=== PATIENT | male | born 1955 | race Asian ===

== ENCOUNTER 2016-09-18 08:17 | Day surgery (SDC) | payer MEDICAID, OTHER ==
[2016-09-17 14:19] VITALS: BMI 27.3
[~2016-09-18] VITALS: Ht 160 cm; Wt 71.9 kg
[2016-09-18] VITALS (9 sets, daily range): BP systolic 116–140; BP diastolic 59–83; PULSE 65–80; RESP 15–18; Ht 160 cm; Wt 71.9 kg
--- NOTE | 2016-09-18 07:47 | PREOPHP ---
DATE OF ADMISSION: 09/18/2016 HISTORY OF PRESENT ILLNESS: This is a 61-year-old male patient with a long history of nasal obstruc tion to breathing and ear problems. He is noted to have chronic ear infections and is noted to have a right tympanic membrane perforation. He is now admitted to the hospital for right ear corrective surgery. PAST MEDICAL HISTORY: ALLERGIES: NONE. MEDICAL CONDITIONS: Diabetes, high blood pressure ulcers, cholesterol. MEDICATIONS: 1. Metformin. 2. Pravastatin. 3. Omeprazole. PRIOR SURGERY: None. CLOTTING DISORDERS: None. HABITS: Alcohol, tobacco, recreational drugs: None. REVIEW OF SYSTEMS: Noncontributory. FAMILY HISTORY: Noncontributory. PHYSICAL EXAMINATION: GENERAL: Well-developed, well-nourished male patient in no acute distress. HEAD: Normocephalic. No masses or deformities. Ears and tympanic membranes, there is a central dr y right tympanic membrane perforation. NOSE: Clear. OROPHARYNX: Clear. NECK: No masses or adenopathy. CHEST: Clear to P and A. HEART: Regular sinus rhythm without murmur. ABDOMEN: Soft, bowel sounds normal. No masses or megaly. EXTREMITIES: Full range of motion without deformity. NEUROLOGIC: Physiologic. RECTAL: Not done. IMPRESSION: Right otitis perforata. RECOMMENDATIONS: Admit for surgery. Dictated By: LISA BETANCOURT/[place] Conf#: [id number] DID#: [id number]
[~2016-09-18 08:17] MED LIST: ASCO500C7 PO; CHOL100062 PO; CYAN100080 PO; EPHEDrine SULFATE 50 MG/5 ML SYG ONE; GLUC1CAP40 PO; MTF1000T PO; NAPR-679 PO; OMEP20CA16 PO
[2016-09-18] MEDS ORDERED: PRAV40TA76 PO (08:45)
[2016-09-18] MEDS ORDERED: LOSA50TA6 PO (08:48)
[2016-09-18] MEDS ORDERED: MULTI PO (08:48)
[2016-09-18] MEDS ORDERED: PROPOFOL 20 ML ONE (12:47)
[2016-09-18] MEDS ORDERED: FENTAnyl 50 MCG/ML VIAL ONE (12:48)
[2016-09-18] MEDS ORDERED: MIDAZOLAM 1 MG/ML 2 ML INJ ONE (12:48)
[2016-09-18] MEDS ORDERED: LIDOCAINE 1%/EPI (MDV) 20 ML INJ ONE (12:57)
[2016-09-18] MEDS ORDERED: GELATIN SIZE 100 SPONGE ONE (12:57)
[2016-09-18] MEDS ORDERED: EPINEPHrine 1 MG INJ ONE (12:57)
[2016-09-18] MEDS ORDERED: DEXAMETHASONE 4 MG/ML 1 ML INJ ONE (13:19)
[2016-09-18] MEDS ORDERED: KETOROLAC 30 MG INJ ONE (13:19)
[2016-09-18] MEDS ORDERED: ONDANSETRON 4 MG INJ ONE ×2 (13:19→13:55)
[2016-09-18] MEDS ORDERED: LIDOCAINE 1%/EPI (MDV) 20 ML INJ INJ ONE (13:19)
[2016-09-18] MEDS ORDERED: METOCLOPRAMIDE 10 MG INJ ONE (13:19)
[2016-09-18] MEDS ORDERED: EPHEDrine SULFATE 50 MG/5 ML SYG IV PRN (14:00)
[2016-09-18] MEDS ORDERED: hydrALAzine 20 MG INJ IV PRN (14:00)
[2016-09-18] MEDS ORDERED: HYDROmorphONE (0.2 MG/ML) 10ML SYG IV PRN ×3 (14:00)
[2016-09-18] MEDS ORDERED: MEPERIDINE 25 MG INJ IV PRN (14:00)
[2016-09-18] MEDS ORDERED: METOCLOPRAMIDE 10 MG INJ IV PRN (14:00)
[2016-09-18] MEDS ORDERED: LABETALOL HCL 20MG INJ IV PRN (14:00)
[2016-09-18] MEDS ORDERED: morphine (1 MG/ML) 10ML SYRINGE IV PRN ×2 (14:00)
[2016-09-18] MEDS ORDERED: ONDANSETRON 4 MG INJ IV PRN (14:00)
[2016-09-18] MEDS ORDERED: DIPHENHYDRAMINE 50 MG INJ IV PRN (14:00)
[2016-09-18] MEDS ORDERED: HYDROCODONE/APAP (7.5/325) TAB PO PRN (15:00)
--- NOTE | 2016-09-18 15:23 | OPR ---
DATE OF OPERATION: 09/18/2016 PREOPERATIVE DIAGNOSIS: Chronic right otitis perforata. POSTOPERATIVE DIAGNOSIS: Chronic right otitis perforata. PROCEDURE PERFORMED: Right tympanoplasty. DESCRIPTION OF PROCEDURE: The patient brought to the operating room under parenteral sedation, gene ral anesthesia by LMA. Right ear prepped and draped in the usual manner. The ear lobe was localize d. A small anterior central perforation was noted. The margins of the perforation were debrided wi th a Gaxiola needle and with cup forceps. The middle ear was filled with dry Gelfoam. A small incisi on was made in the posterior tragus, posterior ear lobe and a piece of fat was excised and set aside for later use as a graft. The incision in this area was closed with interrupted 5-0 silk suture. The graft was then brought into the operative field and placed so as to cover all margins of the per foration and supported by the Gelfoam in the middle ear. The external auditory canal was then fille d with dry Gelfoam. A light cotton dressing was applied and the procedure terminated. The patient awakened and extubated in the operating room, returned to recovery in excellent condition. ESTIMATED BLOOD LOSS: Nil. COMPLICATIONS: None. Dictated By: LISA BETANCOURT/[place] Conf#: [id number] DID#: [id number]
== END 2016-09-18 15:22 | disposition home or self-care (01) ==
LOC: SDS 08:17
PROVIDERS: ATTEND Otolaryngology Otolaryngology/Facial Plastic Surgery
DX: H72.91 Unspecified perforation of tympanic membrane, right ear (principal); H66.91 Otitis media, unspecified, right ear; E11.9 Type 2 diabetes mellitus without complications; Z79.84 Long term (current) use of oral hypoglycemic drugs; E78.5 Hyperlipidemia, unspecified; I10 Essential (primary) hypertension
CPT/HCPCS: 69631; 82962; J1100; J1885; J2250; J2405; J2765; J3010; Z7512; Z7610; J0171

== ENCOUNTER 2017-03-04 10:24 | Day surgery (SDC) | payer OTHER ==
[~2017-03-04] VITALS: Ht 162.6 cm; Wt 70.6 kg
[~2017-03-04 10:24] MED LIST changes: -ASCO500C7 PO; -CHOL100062 PO; -CYAN100080 PO; -EPHEDrine SULFATE 50 MG/5 ML SYG ONE; -GLUC1CAP40 PO; +LOSA50TA6 PO; +MULTI PO; -OMEP20CA16 PO; +PRAV40TA76 PO
[2017-03-04 11:03] VITALS: Ht 162.6 cm; Wt 70.6 kg
[2017-03-04] MEDS ORDERED: OMEP20CA16 PO (11:23)
[2017-03-04] MEDS ORDERED: CLAR500T39 PO (11:23)
[2017-03-04 11:27] VITALS: BP 125/77; PULSE 61; RESP 22
[2017-03-04] MEDS ORDERED: LIDOCAINE 4% SOLUTION 50 ML BTL ONE (11:50)
[2017-03-04] MEDS ORDERED: FENTAnyl 50 MCG/ML VIAL ONE (12:19)
[2017-03-04] MEDS ORDERED: MIDAZOLAM 1 MG/ML 2 ML INJ ONE ×2 (12:19)
--- NOTE | 2017-03-04 12:21 | OPPN ---
Date/Time of Note Date/Time of Note DATE: 03/04/17 TIME: 12:14 Proc Note GI Procedure date: Mar 04, 2017 Pre-procedure Diagnosis Abdominal pain stool positive for occult blood and abdominal pain stool positive for occult blood rule out peptic ulcer disease Post-procedure Diagnosis 12 Millimeter large flat gastric ulcer in the lesser curvature gastritis Operation Performed EGD Anesthesia Type: moderate sedation Estimated blood loss: none Transfusion Required: no Specimens gastric ulcer biopsy Grafts/Implants none Complications: no Indications Abdominal pain rule out peptic ulcer disease Operative\Procedure Findings 112 mm large flat gastric ulcer in lesser curve Gastritis Procedure Description After the informed written consent is obtained patient was asked to lay on the left lateral side 3 mg Versed and 75 mcg of fentanyl was given as intravenous anesthesia When the patient became somnolent Olympus video upper endoscope was introduced into the oropharynx then into the esophagus Esophagus appeared normal Time scope was advanced into the stomach Large flat gastric ulcer measuring 12 mm in diameter was noted in the lesser curvature. folds were found beyond the ulcer but not in the middle. multiple biopsies were obtained Also there is a nodularity of the stomach noted biopsy was done from the antrum the lesser curvature in the fundus to rule out H. pylori infection Duodenum appeared normal At this time endoscope was withdrawn and the procedure was terminated Proton pump inhibitor therapy The pathology report cc dr blount [Send copy to my office] CANDACE BLOUNT MD Mar 04, 2017 12:21
[2017-03-04 12:45] VITALS: BP 131/83; PULSE 60; RESP 14
== END 2017-03-04 13:38 | disposition home or self-care (01) ==
LOC: GIL 10:24
PROVIDERS: ATTEND Internal Medicine Gastroenterology
DX: K92.1 Melena (principal); K29.70 Gastritis, unspecified, without bleeding
CPT/HCPCS: 43239; 88305; 88312; J2250; J3010; Z7610